=== PATIENT | female | born 1995 | race Caucasian/White ===

== ENCOUNTER 2020-09-22 07:28 | Observation (INO) | payer OTHER, SELFPAY ==
[2020-09-22] VITALS (19 sets, daily range): BP systolic 79–131; BP diastolic 47–87; PULSE 60–117; RESP 12–20; TEMP 36.8–43; O2SAT 93–99; BMI 24.2
--- NOTE | 2020-09-22 07:47 | CT_ITS ---
PROCEDURE: CT ABDOMEN PELVIS W CON CLINICAL INDICATION: RLQ pain COMPARISON: No exams were available for comparison TECHNIQUE: IV Contrast: 75ML Isovue 370 Oral Contrast None Axial images obtained with sagittal and coronal reformats. All CT scans at the facility use one or more dose reduction, viz: automated exposure control, ma/kV adjustment per patient size (including targeted exams where dose is matched to indication, i.e. head), or iterative reconstruction technique. FINDINGS: LOWER THORAX: No acute finding ABDOMEN & PELVIS: The liver, spleen, adrenal glands, and pancreas have an unremarkable appearance. No renal or ureteral calculi. No hydronephrosis. There are a few small retroperitoneal lymph nodes. The appendix is distended slightly measuring approximately 8 mm. The appendix is fluid-filled and there is haziness of the periappendiceal fat. These findings are compatible with acute appendicitis. No abscess or perforation apparent. The appendix is retrocecal. There is mild thickening the hepatic flexure of the colon which could be due to nondistention or mild inflammation. There are few small peritoneal lymph nodes. Small amount fluid is present in the pelvis on the right.. There is a small area of somewhat irregular density present within the fluid in the region of the cul-de-sac posteriorly on the right. This measures 2 x 1.7 cm possibly related to the right ovary or a loop of unopacified bowel. No acute bony findings. IMPRESSION: 1. Findings are compatible with acute appendicitis. No evidence of abscess or perforation. The appendix is retrocecal lying along the inferior aspect of the right pericolic gutter.. 2. Mild thickening of the hepatic flexure which may be due to nondistention versus colitis. 3. Mild amount of fluid in the cul-de-sac and right adnexal region with some soft tissue density in this fluid which could be related to the right ovary or even unopacified bowel loop. Dictated by: Augie Espinoza MD 09/22/2020 08:52 Augie Espinoza MD in [place] 09/22/2020 08:52
[2020-09-22 08:01] LABS: Microscopic, Urine URINE MICROSCOPIC (MICROSCOPIC)
[2020-09-22 08:03] LABS: Appearance,Urine CLEAR (Clear); Bilirubin,Urine Negative (Negative); Blood, Urine Negative (Negative); Color,Urine YELLOW (Yellow); Glucose,Urine (UA) Negative (Negative); Ketones,Urine Negative (Negative); Leukocyte Esterase,Urine TRACE (Negative); Nitrate,Urine Negative (Negative); PH,Urine 5.5 (5.0-8.5); Protein,Urine Negative (Negative); Specific Gravity, Urine 1.025 (1.005-1.030); Urobilinogen,Urine 0.2 EU/dl (0.2)
[2020-09-22 08:05] LABS: Urine Pregnancy, HCG Qual. Negative (Negative)
[2020-09-22 08:10] LABS: Basophils # 0.1 K/mm3 (0-0.2); Basophils % 0.4 % (0.1-2.0); Chloride 102 mmol/L (98-107); Eosinophils # 0.2 K/mm3 (0.0-0.4); Eosinophils % 0.9 % (0.1-12.0); Hematocrit 39.9 % (37.0-47.0); Hemoglobin 13.3 g/dL (12.2-16.2); Lymphocytes # 2.8 K/mm3 (0.7-4.5); Lymphocytes % 16.2 % (10-50); Mean Corpuscular HGB Conc 33.5 g/dL (31.8-35.4); Mean Corpuscular Volume 92.5 fl (81-99); Mean Platelet Volume 7.6 fl (7.4-10.4); Monocytes # 0.6 K/mm3 (0.1-1.0); Monocytes % 3.4 % (1.7-9.3); Neutrophils # 13.8 K/mm3 (1.8-7.8); Neutrophils % 79.1 % (37.0-80.0); Platelet Count 291 K/mm3 (142-424); Red Blood Count 4.31 M/mm3 (4.20-5.40); Red Cell Distribution Width 12.9 % (11.5-17.5); Sodium 139 mmol/L (136-145); White Blood Count 17.4 K/mm3 (4.8-10.8)
[2020-09-22 08:11] LABS: Potassium 3.8 mmoL/L (3.5-5.1)
[2020-09-22 08:13] LABS: Alanine Aminotransferase 18 U/L (12-78); Albumin Level 4.7 g/dl (3.5-5.0); Albumin/Globulin Ratio 1.5 (1.1-1.8); Alkaline Phosphatase 54 U/L (38-126); Anion Gap 12.8 mEq/L (5-15); Aspartate Amino Transferase 27 U/L (14-36); Bilirubin,Total 0.4 mg/dl (0.2-1.3); Blood Urea Nitrogen 9 mg/dl (7-17); Carbon Dioxide 28 mmol/L (22.0-30.0); Creatinine Clearance Estimated 134 mL/min (50-200); Estimated Glomerular Filt Rate 104 ml/min (>60); GFR (African American) 125 ML/MIN (>60); Globulin 3.1 g/dL (1.3-3.2); Total Protein,Serum 7.8 g/dl (6.3-8.2)
--- NOTE | 2020-09-22 08:13 | PC.NURSE ---
rad notified of ct order, spoke with Gopi
[2020-09-22 08:14] LABS: Calcium 8.9 mg/dl (8.4-10.2); Glucose 107 mg/dl (74-100)
[2020-09-22 08:24] LABS: MANUAL DIFFERENTIAL MANUAL DIFFERENTIAL (MANUAL DIFF)
[2020-09-22 08:35] LABS: Lymphocytes % 14 % (10-50); Monocytes % 6 % (2-9); Neutrophils % 80 % (42-76); Platelet Estimate Normal; Total Cells Counted 100
--- NOTE | 2020-09-22 09:04 | HMH.EDABDPAI ---
ED Disposition Clinical Impression: Acute appendicitis Disposition: Admitted as Observation Condition on Discharge: Good Instructions: DI for Acute Abdominal Pain Referrals: Provider,Referral, [Primary Care Provider] - - Critical Care Critical Care Time: No Attestation: On 09/22/20, the high probability of a clinically significant, sudden or life threatening deterioration of the following system(s) required my full and direct attention, intervention and personal management. The time I documented below is in addition to time spent performing reported procedures but includes the following listed in this critical care notation. Medical Decision Making - Medical Records Medical records reviewed: Yes: I reviewed the patient's medical records. - Norbert Inquiry Pt receiving controlled substance: No Vital Signs: 09/22/20 07:37 Temperature 98.6 F Temperature Source Oral Pulse Rate [Right Radial] 117 H Respiratory Rate 16 Blood Pressure [Right Arm] 125/71 Blood Pressure Mean [Right Arm] 89 Blood Pressure Source [Right Arm] Automatic Cuff Blood Pressure Position [Right Arm] Sitting 02 Sat by Pulse Oximetry 99 Oxygen Delivery Method Room Air - Lab Data Lab Results 09/22/20 07:50: Urine Color Yellow, Urine Appearance Clear, Urine pH 5.5, Ur Specific [place] 1.025, Urine Protein Negative, Urine Glucose (UA) Negative, Urine Ketones Negative, Urine Blood Negative, Urine Nitrate Negative, Urine Bilirubin Negative, Urine Urobilinogen 0.2, Ur Leukocyte Esterase Trace, Urine RBC None, Urine WBC 3-5, Ur Squamous Epith Cells 3-5, Urine Bacteria None 09/22/20 07:50: WBC 17.4 H, RBC 4.31, Hgb 13.3, Hct 39.9, MCV 92.5, MCH 31.0, MCHC 33.5, RDW 12.9, Plt Count 291, MPV 7.6, Neut % (Auto) 79.1, Lymph % (Auto) 16.2, [place] % (Auto) 3.4, Eos % (Auto) 0.9, Baso % (Auto) 0.4, Neut # (Auto) 13.8 H, Lymph # (Auto) 2.8, [place] # (Auto) 0.6, Eos # (Auto) 0.2, Baso # (Auto) 0.1, Total Counted 100, Neutrophils % (Manual) 80 H, Lymphocytes % (Manual) 14, Monocytes % (Manual) 6, Platelet Estimate Normal 09/22/20 07:50: Sodium 139, Potassium 3.8, Chloride 102, Carbon Dioxide 28, Anion Gap 12.8, BUN 9, Creatinine 0.70, Estimated Creat Clear 134, Estimated GFR 104, Est GFR ( Amer) 125, Glucose 107 H, Calcium 8.9, Total Bilirubin 0.4, AST 27, ALT 18, Alkaline Phosphatase 54, Total Protein 7.8, Albumin 4.7, Globulin 3.1, Albumin/Globulin Ratio 1.5 09/22/20 07:50: Urine HCG, Qual Negative Result diagrams: 09/22/20 07:50 09/22/20 07:50 Orders (Tests/Meds): ED MEDICATIONS Generic Name Dose Route Start Last Admin Trade Name Freq PRN Reason Stop Dose Admin Sodium Chloride 1,000 mls @ 999 mls/hr 09/22/20 09:15 Sod Chlor 0.9% 1000ml Bag IV 09/22/20 10:15 .Q1H1M SHE[place]TON Piperacillin Sod/Tazobactam 50 mls @ 100 mls/hr 09/22/20 09:15 Sod 3.375 gm/ Sodium Chloride IV 10/06/20 09:14 Q8H SHE[place] Discontinued Medications Generic Name Dose Route Start Last Admin Trade Name Freq PRN Reason Stop Dose Admin Sodium Chloride 1,000 mls @ 999 mls/hr 09/22/20 08:00 09/22/20 07:57 Sod Chlor 0.9% 1000ml Bag IV 09/22/20 09:00 999 mls/hr .Q1H1M SHE[place] Administration Iopamidol 75 ml 09/22/20 08:32 09/22/20 08:33 Iopamidol-370 (76%);100ml Bottle IV 09/22/20 08:33 75 ml ONCE ONE Administration Ketorolac Tromethamine 30 mg 09/22/20 07:56 09/22/20 07:57 Ketorolac 30mg/Ml Vial IV 09/22/20 07:57 30 mg ONCE ONE Administration Ondansetron HCl 4 mg 09/22/20 07:54 09/22/20 07:57 Ondansetron 4mg/2ml Vial IV 09/22/20 07:55 4 mg ONCE ONE Administration Sodium Chloride 10 ml 09/22/20 08:32 09/22/20 08:33 Sodium Chloride 0.9% 10ml Syr (Rad Only) IV 09/22/20 08:33 10 ml ONCE ONE Administration ORDERS Category Date Time Status Type and Screen Stat BBK 09/22/20 09:02 Ordered HCG Qualitative, Serum Stat Lab 09/22/20 07:50 Received Blood Culture Stat Micro 09/22/20 09:02 Ordered Medical
--- NOTE | 2020-09-22 09:05 | PC.NURSE ---
Dr Veras speaking with Dr Castle
--- NOTE | 2020-09-22 09:06 | PC.NURSE ---
per , admit pt.
--- NOTE | 2020-09-22 09:07 | PC.NURSE ---
notified care management of admission, spoke with Carmel
[2020-09-22 09:14] LABS: HCG Qualitative, Serum Negative (Negative)
[2020-09-22 09:38] LABS: Coronavirus 19, PCR Not Detected (NotDetected); Influenza A, PCR Not Detected (NotDetected); Influenza B, PCR Not Detected (NotDetected)
--- NOTE | 2020-09-22 10:14 | PC.NURSE ---
report called to ishmael gay on second floor at this time
--- NOTE | 2020-09-22 10:39 | P.CONPHA_ITS ---
[facility] Pharmacy VTE Monitoring - Patient Demographics Admission date: 09/22/20 Report Date: 09/22/20 Time: 10:39 Allergies/Adverse Reactions: Patient Allergies No Known Allergies Allergy (Verified 09/22/20 07:45) Height: 1.68 m Weight: 68.039 kg Patient Problems: Current Active Problems Acute appendicitis (Acute) - VTE Risk Labs: VTE Related Lab Results Hgb 13.3 g/dL (12.2-16.2) 09/22/20 07:50 Hct 39.9 % (37.0-47.0) 09/22/20 07:50 Plt Count 291 K/mm3 (142-424) 09/22/20 07:50 BUN 9 mg/dl (7-17) 09/22/20 07:50 Creatinine 0.70 mg/dl (0.52-1.04) 09/22/20 07:50 Estimated Creat Clear 134 mL/min (50-200) 09/22/20 07:50 Clinical Trial Participant: No - Prophylaxis VTE Prophylaxis Ordered?: Yes Types of VTE Prophylaxis: TEDS Knee High
--- NOTE | 2020-09-22 11:14 | HMH.GSHP ---
HPI HPI: This is a 24-year-old female who presented to the emergency department this morning with increasing right lower quadrant abdominal pain. Evaluation revealed radiographic evidence of appendicitis. Leukocytosis also confirmed. Please see HPI from emergency department evaluation forwarded below. Forwarded from emergency department evaluation: Abdominal Pain HPI - General Chief Complaint: Abdominal Pain Stated Complaint: lower right abd pain Time Seen by Provider: 09/22/20 08:30 Mode of Arrival: Ambulatory Limitations: No Limitations Description of Symptoms (Recalled from ER Triage Doc. by RN): Pt reports R lower quadrant abd pain that began approx 0600 this AM. Pt reports pain woke her up this morning. Pt reports nausea. Pt reports last BM was this morning. Pt describes pain as sharp, stabbing. - History of Present Illness HPI narrative: 24-year-old female presents with sudden onset right lower quadrant pain this morning. She said initially felt like her ovarian cyst that she gets however the pain was worse than normal. No fever no chills no nausea vomiting diarrhea. No chest pain or shortness of air. No prior abdominal surgeries. No sick contacts. Onset (ago): hour(s) (3) Consistency: constant Location: RLQ Severity: moderate Quality: dull H History Medical History: Denies:: Asthma, Cancer *Have you ever received a pneumonia vaccine?: No *Have you received a flu vaccine this season?: Yes Other Medical History: Denies: Anemia, Hypothyroidism Other Surgeries: Yes: No Previous Surgery - *Social History Last grade of school completed: Some college Smoking Status: Never smoker Alcohol Intake: current Alcohol Intake Frequency:: holidays/special occasions only Substance Use Type: denies use *Occupational Status:: employed *Travel in the last 8 weeks: None Family Hx:: No significant family history Review of Systems - Review of Systems Review of systems:: pertinent systems reviewed and negative unless documented below - *Gastrointestinal Reports abdominal pain - *Neurologic Denies unsteadiness, Denies dizziness, Denies headache(s) Meds Home Medications Medication Instructions Recorded Confirmed Type No Known Home Medications 09/22/20 09/22/20 History Allergies Allergy/AdvReac Type Severity Reaction Status Date / Time No Known Allergies Allergy Verified 09/22/20 07:45 Exam Vital signs and Labs for Last 24 Hours: Temp Pulse Resp BP Pulse Ox 99.5 F 99 H 16 124/73 99 09/22/20 10:25 09/22/20 10:25 09/22/20 10:25 09/22/20 10:25 09/22/20 10:06 Laboratory Results - last 24 hr 09/22/20 07:50: Urine Color Yellow, Urine Appearance Clear, Urine pH 5.5, Ur Specific [place] 1.025, Urine Protein Negative, Urine Glucose (UA) Negative, Urine Ketones Negative, Urine Blood Negative, Urine Nitrate Negative, Urine Bilirubin Negative, Urine Urobilinogen 0.2, Ur Leukocyte Esterase Trace, Urine RBC None, Urine WBC 3-5, Ur Squamous Epith Cells 3-5, Urine Bacteria None 09/22/20 07:50: WBC 17.4 H, RBC 4.31, Hgb 13.3, Hct 39.9, MCV 92.5, MCH 31.0, MCHC 33.5, RDW 12.9, Plt Count 291, MPV 7.6, Neut % (Auto) 79.1, Lymph % (Auto) 16.2, [place] % (Auto) 3.4, Eos % (Auto) 0.9, Baso % (Auto) 0.4, Neut # (Auto) 13.8 H, Lymph # (Auto) 2.8, [place] # (Auto) 0.6, Eos # (Auto) 0.2, Baso # (Auto) 0.1, Total Counted 100, Neutrophils % (Manual) 80 H, Lymphocytes % (Manual) 14, Monocytes % (Manual) 6, Platelet Estimate Normal 09/22/20 07:50: Sodium 139, Potassium 3.8, Chloride 102, Carbon Dioxide 28, Anion Gap 12.8, BUN 9, Creatinine 0.70, Estimated Creat Clear 134, Estimated GFR 104, Est GFR ( Amer) 125, Glucose 107 H, Calcium 8.9, Total Bilirubin 0.4, AST 27, ALT 18, Alkaline Phosphatase 54, Total Protein 7.8, Albumin
--- NOTE | 2020-09-22 15:39 | P.PN_ITS ---
[facility] Anesthesia Checklist - Structural Data Admitted From: Inpatient Planned Operative Procedure/s: lap appy Consent for Planned Operative Procedure(s) Verified: Yes - Airway Assessment C-Spine Mobility Assessed: Yes TMJ Mobility Assessed: Yes Dentition: Good Dentition - Neurological Assessment Level of Consciousness: Awake, Alert, Appropriate - Anesthesia Plan Anesthesia Risk discussed: Yes Anesthesia Plan: Verified ASA Class: I Anesthesia Type: General [facility] History I have reviewed the patient's past medical history: Yes Medical History: Denies:: Asthma, Cancer, Diabetes Mellitus Type 1, Diabetes Mellitus Type 2 *Have you ever received a pneumonia vaccine?: No *Have you received a flu vaccine this season?: Yes Other Medical History: Denies: Anemia, Hypothyroidism Anesthesia experience/problems:: none Other Surgeries: Yes: No Previous Surgery - *Social History Last grade of school completed: Some college Smoking Status: Never smoker Alcohol Intake: never Alcohol Intake Frequency:: holidays/special occasions only Substance Use Type: denies use *Occupational Status:: employed *Travel in the last 8 weeks: Inside the [facility] Family Hx:: No significant family history
--- NOTE | 2020-09-22 16:23 | HMH.OPNOTE ---
Date of procedure: 09/22/20 Pre-op Diagnosis:: Appendicitis Post-op Diagnosis:: Suppurative appendicitis Procedure performed:: Laparoscopic appendectomy Surgeon:: Gerhard Castle MD Principle Software Engineer(s):: Elvie PRINTING WORKER SUPERVISOR:: Nir Pizano Anesthesia: GETA Estimated blood loss (mL): 10 Operative findings:: Suppurative appendix Severe periappendiceal inflammation Partially retrocecal appendix Operative note:: After informed consent was obtained the patient was taken to the operating room and placed in the supine position. General anesthesia was induced and her abdomen was prepped and draped in a sterile fashion. After infiltration of local anesthetic a supraumbilical incision was made. A Veress needle was placed in position. The abdomen was insufflated. A 12 mm optical trocar was placed in position. Under direct visualization an additional 5 mm trocar was placed in the suprapubic position and an additional 5 mm trocar was placed in the left lower quadrant. Evaluation of the right lower quadrant revealed periappendiceal inflammation. The appendix was enlarged and inflamed. Suppurative changes were noted along the mid/distal appendix. The tip of the appendix was elevated as the mesoappendix was taken with harmonic phil. The proximal and midportion of the appendix were retrocecal and dissection was very difficult. No obvious injury to small bowel or colon was noted. An Endopath 45 stapling device was utilized to transect the appendix at its base. The appendix was placed in a retrieval bag and removed through the supraumbilical trocar site. The right lower quadrant and pelvis were thoroughly irrigated. No active bleeding or sign of injury was noted. No pockets of purulence were encountered. The fascia at the supraumbilical trocar site was reapproximated with 0 Ethibond. Pneumoperitoneum was released as the remaining trocars were removed. All wounds were irrigated and skin was closed with 4-0 Monocryl in a subcuticular fashion. Steri-Strips were applied and the patient was transferred to recovery in stable condition after extubation. Condition: stable Disposition: PACU Specimens:: Appendix Complications:: No immediate
--- NOTE | 2020-09-22 16:29 | P.PN_ITS ---
[facility] Anesthesia Record Part I Intake, IV Amount: 1,500 Estimated blood loss (mL): 0 Urine output (mL): 150 Blood Pressure: 102/87 SaO2: 98 Pulse Rate: 95 Respiratory Rate: 12 Temperature: 99.4 F Patient is:: Awake, Stable Stable to PACU at:: 16:30
[2020-09-23 00:09] VITALS: BP 109/48; PULSE 80; RESP 17; TEMP 36.8; O2SAT 98
--- NOTE | 2020-09-23 02:35 | PC.NURSE ---
2049: SPOKE TO DR. QUAN AND INFORMED HIM THAT PATIENT WAS REQUESTING NAUSEA MEDICINE. SEE ORDER PER APR.
--- NOTE | 2020-09-23 03:11 | PC.NURSE ---
A&OX4. TOLERATING RA WELL. PT HAS C/O NAUSEA X1 THIS SHIFT. TX PER APR. PT HAS NOT REQUESTED PAIN MEDICATION FOR ABD PAIN. STATES SHE IS SORE BUT IT IS TOLERABLE. ABD INCISIONS CDI. PT TOLERATING CLEAR LIQUIDS. RESTING WELL T/O SHIFT. VSS WILL CONTINUE TO MONITOR.
[2020-09-23 03:30] VITALS: BP 107/53; PULSE 77; RESP 17; TEMP 37.2; O2SAT 97
--- NOTE | 2020-09-23 06:40 | P.PN_ITS ---
Subjective Patient reports: feels better Narrative: Some nausea overnight. No significant nausea currently. Progress Note: A&P (1) Suppurative appendicitis Status: Acute Assessment and plan: Overall, doing well status post laparoscopic appendectomy. Mild to moderate suppurative changes noted along mid/distal appendix. Follow-up a.m. labs Slowly advance diet Continue antibiotics secondary to suppurative changes Exam Vital signs and Labs for Last 24 Hours: Temp Pulse Resp BP Pulse Ox 98.9 F 77 17 107/53 L 97 09/23/20 03:30 09/23/20 03:30 09/23/20 03:30 09/23/20 03:30 09/23/20 03:30 Laboratory Results - last 24 hr 09/22/20 07:50: Urine Color Yellow, Urine Appearance Clear, Urine pH 5.5, Ur Specific [place] 1.025, Urine Protein Negative, Urine Glucose (UA) Negative, Urine Ketones Negative, Urine Blood Negative, Urine Nitrate Negative, Urine Bilirubin Negative, Urine Urobilinogen 0.2, Ur Leukocyte Esterase Trace, Urine RBC None, Urine WBC 3-5, Ur Squamous Epith Cells 3-5, Urine Bacteria None 09/22/20 07:50: WBC 17.4 H, RBC 4.31, Hgb 13.3, Hct 39.9, MCV 92.5, MCH 31.0, MCHC 33.5, RDW 12.9, Plt Count 291, MPV 7.6, Neut % (Auto) 79.1, Lymph % (Auto) 16.2, [place] % (Auto) 3.4, Eos % (Auto) 0.9, Baso % (Auto) 0.4, Neut # (Auto) 13.8 H, Lymph # (Auto) 2.8, [place] # (Auto) 0.6, Eos # (Auto) 0.2, Baso # (Auto) 0.1, Total Counted 100, Neutrophils % (Manual) 80 H, Lymphocytes % (Manual) 14, Monocytes % (Manual) 6, Platelet Estimate Normal 09/22/20 07:50: Sodium 139, Potassium 3.8, Chloride 102, Carbon Dioxide 28, Anion Gap 12.8, BUN 9, Creatinine 0.70, Estimated Creat Clear 134, Estimated GFR 104, Est GFR ( Amer) 125, Glucose 107 H, Calcium 8.9, Total Bilirubin 0.4, AST 27, ALT 18, Alkaline Phosphatase 54, Total Protein 7.8, Albumin 4.7, Globulin 3.1, Albumin/Globulin Ratio 1.5 09/22/20 07:50: Urine HCG, Qual Negative 09/22/20 07:50: Serum HCG, Qual Negative 09/22/20 09:12: SARS-CoV-2 (PCR) Not detected, Influenza A Untype (PCR) Not detected, Influenza Type B (PCR) Not detected 09/22/20 09:24: Blood Type A Negative, Antibody Screen Negative I & O for Last 24 hours: Intake & Output 09/20/20 09/21/20 09/22/20 09/23/20 11:59 11:59 11:59 11:59 Intake Total 3089 / 3089 Balance 3089 / 3089 Weight 150 lb - Constitutional no acute distress - *Routine Respiratory Exam Absent: respiratory distress - *Routine Cardiovascular Exam Present: RRR - *Routine Abdominal Exam Present: soft Comments: Dressings in place. No spreading cellulitis.
[2020-09-23 06:41] LABS: Basophils % 0.5 % (0.1-2.0); Eosinophils # 0.1 K/mm3 (0.0-0.4); Hematocrit 30.4 % (37.0-47.0); Lymphocytes # 1.9 K/mm3 (0.7-4.5); Lymphocytes % 31.4 % (10-50); Mean Corpuscular HGB Conc 34.2 g/dL (31.8-35.4); Mean Corpuscular Hemoglobin 31.3 pg (27.0-31.2); Mean Corpuscular Volume 91.5 fl (81-99); Mean Platelet Volume 8.7 fl (7.4-10.4); Monocytes # 0.3 K/mm3 (0.1-1.0); Monocytes % 5.3 % (1.7-9.3); Neutrophils # 3.8 K/mm3 (1.8-7.8); Neutrophils % 61.8 % (37.0-80.0); Platelet Count 194 K/mm3 (142-424); Red Blood Count 3.32 M/mm3 (4.20-5.40); White Blood Count 6.2 K/mm3 (4.8-10.8)
[2020-09-23 06:54] LABS: Hemoglobin 10.4 g/dL (12.2-16.2)
[2020-09-23 07:00] LABS: Chloride 106 mmol/L (98-107); Sodium 136 mmol/L (136-145)
[2020-09-23 07:03] LABS: Blood Urea Nitrogen 8 mg/dl (7-17); Calcium 8.1 mg/dl (8.4-10.2); Carbon Dioxide 28 mmol/L (22.0-30.0); Creatinine Clearance Estimated 116 mL/min (50-200); Estimated Glomerular Filt Rate 88 ml/min (>60); GFR (African American) 107 ML/MIN (>60); Glucose 85 mg/dl (74-100)
--- NOTE | 2020-09-23 07:38 | P.PN_ITS ---
[facility] Anesthesia Record Part II Discharge Time: 17:10 Destination: Medical Surgical Department PACU nurse assessment reviewed?: Yes Patient Condition:: Good Anesthesia Complications:: None Swallowing reflex intact?: Yes Cyanosis?: No Blood Pressure: 129/62 Pulse Rate: 87 Temperature: 97.4 F Mental Status: Alert & Oriented Pain level:: 2 Nausea and/or vomitting:: None Intake, IV Amount: 0
[2020-09-23 07:39] VITALS: BP 129/62; PULSE 87; TEMP 36.3
[2020-09-23 08:00] VITALS: BP 113/58; PULSE 83; RESP 18; TEMP 36.7; O2SAT 98
[2020-09-23 09:21] LABS: Microscopic,Cath URINE MICROSCOPIC (MICROSCOPIC)
[2020-09-23 09:29] LABS: Appearance,Urine/Cath CLEAR (Clear); Bilirubin,Cath Negative (Negative); Blood, Urine/Cath Negative (Negative); Color,Urine/Cath YELLOW (Yellow); Glucose,Urine/Cath (UA) Negative (Negative); Ketones,Urine/Cath Negative (Negative); Leukocyte Esterase,Cath Negative (Negative); Nitrate,Cath Negative (Negative); PH,Urine/Cath 8.5 (5.0-8.5); Protein,Urine/Cath Negative (Negative); Urobilinogen,Cath 0.2 EU/dl (0.2)
[2020-09-23 09:43] LABS: Squamous Epithelial Ur./Cath Occasional #/hpf (0-5)
--- NOTE | 2020-09-23 11:54 | HMH.DCSUM ---
General - General Admission date:: 09/22/20 Discharge date: 09/23/20 HPI HPI: This is a 24-year-old female who presented to the emergency department this morning with increasing right lower quadrant abdominal pain. Evaluation revealed radiographic evidence of appendicitis. Leukocytosis also confirmed. Please see HPI from emergency department evaluation forwarded below. Forwarded from emergency department evaluation: Abdominal Pain HPI - General Chief Complaint: Abdominal Pain Stated Complaint: lower right abd pain Time Seen by Provider: 09/22/20 08:30 Mode of Arrival: Ambulatory Limitations: No Limitations Description of Symptoms (Recalled from ER Triage Doc. by RN): Pt reports R lower quadrant abd pain that began approx 0600 this AM. Pt reports pain woke her up this morning. Pt reports nausea. Pt reports last BM was this morning. Pt describes pain as sharp, stabbing. - History of Present Illness HPI narrative: 24-year-old female presents with sudden onset right lower quadrant pain this morning. She said initially felt like her ovarian cyst that she gets however the pain was worse than normal. No fever no chills no nausea vomiting diarrhea. No chest pain or shortness of air. No prior abdominal surgeries. No sick contacts. Onset (ago): hour(s) (3) Consistency: constant Location: RLQ Severity: moderate Quality: dull Hospital Course Hospital Course: The patient underwent laparoscopic appendectomy. Please see operative report for detail. She was found to have suppurative appendicitis. She was maintained on Zosyn throughout her hospitalization. She remained afebrile with stable and normal vital signs and was deemed appropriate for discharge home on postoperative day one. She was discharged with a short course of Augmentin secondary to the suppurative nature of her appendicitis. Objective Vital signs: Temp Pulse Resp BP Pulse Ox 98.0 F 83 18 113/58 L 98 09/23/20 08:00 09/23/20 08:00 09/23/20 08:00 09/23/20 08:00 09/23/20 08:00 no acute distress - *Routine HEENT Exam Head: Present: normocephalic Eye: Present: EOMI ENT: Present: mucous membranes moist - *Routine Neck Exam Present: full ROM - Routine Chest/Breast/Axilla Exam Chest wall: Absent: tenderness - *Routine Respiratory Exam Absent: respiratory distress - *Routine Cardiovascular Exam Present: RRR - *Routine Abdominal Exam Present: soft - *Routine Rectal Exam Patient deferred: visual exam - *Routine Exam Patient deferred: external exam - *Routine Extremities Exam Present: full ROM - Routine Back/Spine/Pelvis Exam Back/Spine: Present: full ROM - *Routine Skin Exam Absent: erythema - *Routine Neurological Exam Present: alert - Routine Psychiatric Exam Present: normal affect Results Labs on day of discharge: Labs from last 24 hours 09/23/20 09/23/20 09/22/20 06:29 06:29 15:20 WBC 6.2 D RBC 3.32 L Hgb 10.4 L D Hct 30.4 L MCV 91.5 MCH 31.3 H MCHC 34.2 RDW 13.0 Plt Count 194 D MPV 8.7 Neut % (Auto) 61.8 Lymph % (Auto) 31.4 [place] % (Auto) 5.3 Eos % (Auto) 1.0 Baso % (Auto) 0.5 Neut # (Auto) 3.8 Lymph # (Auto) 1.9 [place] # (Auto) 0.3 Eos # (Auto) 0.1 Baso # (Auto) 0.0 Sodium 136 Potassium 4.0 Chloride 106 Carbon Dioxide 28 Anion Gap 6.0 BUN 8 Creatinine 0.80 Estimated Creat Clear 116 Estimated GFR 88 Est GFR ( Amer) 107 Glucose 85 D Calcium 8.1 L Urine Color Yellow Urine Appearance Clear Urine pH 8.5 Ur Specific [place] 1.010 Urine Protein Negative Urine Glucose (UA) Negative Urine Ketones Negative Urine Blood Negative Urine Nitrate Negati
[2020-09-23 12:00] VITALS: BP 105/56; PULSE 69; RESP 16; TEMP 37; O2SAT 100
--- NOTE | 2020-09-23 13:01 | HMH.PHAINT ---
MEDICATION DISCHARGE COUNSELING COMPLETED. PATIENT HAD NO QUESTIONS. SPOKE WITH PATIENT ABOUT HOW TO TAKE EACH MEDICATION AND SIGNS TO WATCH FOR IN CASE OF AN ADVERSE EVENT.
== END 2020-09-23 13:53 | disposition home or self-care (01) ==
LOC: ER 09:08 → 2ND 09:16
PROVIDERS: Emergency Medicine; Admitting Provider Surgery; Emergency Provider Emergency Medicine; Visit Provider Surgery
PROC: 0DTJ4ZZ Resection of Appendix, Percutaneous Endoscopic Approach (ICD-10-PCS; CPT 44970; principal; 2020-09-22 15:00)
DX: K35.80 Unspecified acute appendicitis (principal); Z20.822 Contact with and (suspected) exposure to COVID-19
CPT/HCPCS: 44970; 36415; 74177; 80048; 80053; 81001; 81025; 84703; 85007; 85025; 86850; 87040; 96365; 96367; 96375; 99284; G0378; J2405; J2543; Q9967; U0003

== ENCOUNTER 2024-04-16 15:51 | Outpatient (CLI) | payer BC, SELFPAY ==
[2024-04-16 18:47] LABS: HCG,Quantitative 35277 mIU/ml (0-5.42)
== END 2024-04-16 23:59 | disposition home or self-care (01) ==
LOC: LAB 15:56
PROVIDERS: PCP Physician Assistant; Visit Provider Obstetrics & Gynecology
DX: Z32.01 Encounter for pregnancy test, result positive (principal)
CPT/HCPCS: 36415; 84144; 84702

== ENCOUNTER 2024-05-13 13:57 | Outpatient (CLI) | payer BC, SELFPAY ==
[2024-05-13 14:47] LABS: Basophils % 0.5 % (0.1-2.0); Eosinophils # 0.1 K/mm3 (0.0-0.4); Eosinophils % 1.2 % (0.1-12.0); Hematocrit 35.2 % (37.0-47.0); Lymphocytes # 2.4 K/mm3 (0.7-4.5); Lymphocytes % 29.4 % (10-50); Mean Corpuscular HGB Conc 34.1 g/dL (31.8-35.4); Mean Corpuscular Hemoglobin 31.4 pg (27.0-31.2); Mean Corpuscular Volume 92.1 fl (81-99); Mean Platelet Volume 9.9 fl (7.4-10.4); Monocytes # 0.5 K/mm3 (0.1-1.0); Monocytes % 6.4 % (1.7-9.3); Neutrophils # 5.1 K/mm3 (1.8-7.8); Neutrophils % 62.4 % (37.0-80.0); Platelet Count 292 K/mm3 (142-424); Red Blood Count 3.82 M/mm3 (4.20-5.40); Red Cell Distribution Width 11.9 % (11.5-17.5); White Blood Count 8.2 K/mm3 (4.8-10.8)
[2024-05-13 16:12] LABS: HIV Combo NEGATIVE (Negative)
[2024-05-13 16:19] LABS: Hepatitis C Ab Qual. W/ RFX NEGATIVE (Negative)
[2024-05-14 07:39] LABS: RPR W/RFX Titers Nonreactive (Nonreactive)
[2024-05-14 08:16] LABS: Hepatitis B Surface Antigen Negative (Negative)
== END 2024-05-13 23:59 | disposition home or self-care (01) ==
LOC: LAB 13:58
PROVIDERS: PCP Physician Assistant; Visit Provider Obstetrics & Gynecology
DX: Z34.01 Encounter for supervision of normal first pregnancy, first trimester (principal)
CPT/HCPCS: 36415; 85025; 86592; 86762; 86803; 86850; 87340; 87389

== ENCOUNTER 2024-07-23 13:56 | Outpatient (CLI) | payer BC, SELFPAY ==
--- NOTE | 2024-07-23 14:00 | US_ITS ---
PROCEDURE: US OB /MATERNAL DETAIL CLINICAL INDICATION: 20 week Anatomy Scan-US OB Complete COMPARISON: No exams were available for comparison FINDINGS: Transabdominal sonographic images of the pelvis were obtained. From her established due date she is 20 weeks 4 days. Single viable intrauterine gestation. Cephalic position. Placenta: Posteriorplacenta grade 1. Placental lakes are seen. There is an average amount of fluid. The cervix appears satisfactory. Closed and measuring 3.65 cm in length. Complete survey performed and was unremarkable on the submitted images as in PACS. No discrete anomalies identified on survey imaging by technologist. Active fetus. Three-vessel cord with satisfactory umbilical cord insertion. 4- chamber heart noted. Situs, aortic arch, LVOT, RVOT, three-vessel view appear normal. Survey of brain & ventricles Unremarkable. Cerebellum, thalamus, choroid plexus, cisterna magna appear normal. Face and neck survey unremarkable. Profile, nasion, lips and nose appeared normal. Diaphragm and chest views unremarkable. Abdomen: Both kidneys noted and unremarkable. Stomach and bladder noted and satisfactory. Spine: Survey of the spine satisfactory with no anomalies identified nor imaged. Cervical, thoracic, lower spine appear normal. Both arms and legs noted. Amniotic Fluid: Adequate. MVP 2.73 cm Measurements: Average ultrasound age 19weeks 6days. Estimated due date by ultrasound age 1112/11/2024. Estimated weight 309g BPD = 19weeks 5days HC = 19weeks 5days AC = 19weeks 5days FL = 19weeks 6days Growth Percentile= 10 Heart Rate = 153bpm Cerebellum = 18weeks 6days Humerus = 19weeks 6days HC/AC is 1.19 FL/BPD is 0.7 FL/AC is 0.22 IMPRESSION: 1. Viable fetus in the cephalic presentation with a posterior placenta grade 1. There are placental lakes seen. 2. Fluid is within normal limits with an MVP 2.73 cm. 3. Anatomical scan appears normal. 4. biometry is consistent with the dates. Dictated by: Delmer Forrest MD 07/23/2024 15:17 Delmer Forrest MD in [facility] 07/23/2024 15:17
== END 2024-07-23 23:59 | disposition home or self-care (01) ==
LOC: RAD 13:56
PROVIDERS: PCP Physician Assistant; Visit Provider Obstetrics & Gynecology
DX: O26.892 Other specified pregnancy related conditions, second trimester (principal); Z67.91 Unspecified blood type, Rh negative; Z36.3 Encounter for antenatal screening for malformations; Z3A.20 20 weeks gestation of pregnancy
CPT/HCPCS: 76811

== ENCOUNTER 2024-09-17 13:18 | Outpatient (CLI) | payer BC, SELFPAY ==
[2024-09-17 13:49] LABS: Hematocrit 33.6 % (37.0-47.0); Hemoglobin 11.2 g/dL (12.2-16.2); Immature Granulocytes % 0.6 %; Mean Corpuscular HGB Conc 33.3 g/dL (31.8-35.4); Mean Corpuscular Hemoglobin 31.5 pg (27.0-31.2); Mean Corpuscular Volume 94.4 fl (81-99); Nucleated Red Blood Cells % 0 %; Platelet Count 282 K/mm3 (142-424); Red Blood Count 3.56 M/mm3 (4.20-5.40); Red Cell Distribution Width-SD 41.1 fL; White Blood Count 8.8 K/mm3 (4.8-10.8)
[2024-09-17 15:10] VITALS: BP 136/84; PULSE 94; RESP 18; O2SAT 100
[2024-09-17] MEDS: RHO(D) IMMUNE GLOBULIN 1,500 UNIT (300MCG) SYRINGE 300 MCG IM (15:12)
--- NOTE | 2024-09-17 15:15 | US_ITS ---
PROCEDURE: US OB FOLLOW UP CLINICAL INDICATION: growth and LADONNA COMPARISON: US US OB /MATERNAL DETAIL from 07/23/2024 FINDINGS: Transabdominal sonographic images of the pelvis were obtained. The following parameters are obtained: From her established due date she is 28weeks 4days Viable fetus in the cephalic presentation with a posterior placenta grade 1. There are placental lakes seen. The cervix measures 2.86 cm heart rate: 146bpm bpm. Estimated weight 1182 grams, 2 lb 10 oz Average ultrasound age 28 weeks 3 days BPD: 29weeks 0 days, 52 percentile HC: 28weeks 0 days, 8 percentile AC: 27weeks 5days, 19 percentile FL: 28weeks 5days, 38 percentile HC/AC: 1.1 FL/BPD: 0.75 FL/AC: 0.23 Growth percentile: 23 Amniotic fluid index: 9.36cm, MVP 3.40 cm No obvious anomalies evident. profile seen, stomach, bladder, kidneys, three-vessel cord, four chamber heart appear normal. IMPRESSION: 1. Viable fetus in the cephalic presentation with a posterior placenta grade 1. There are several small placental lakes. 2. The fluid is within normal limits with amniotic fluid index 9.36 cm, MVP 3.40 cm. 3. There has been good interval growth with the fetus currently 23rd percentile. 4. Limited anatomical scan appears normal. Dictated by: Delmer Forrest MD 09/17/2024 21:16 Delmer Forrest MD in [place] 09/17/2024 21:16
[2024-09-17 17:03] LABS: RPR W/RFX Titers Nonreactive (Nonreactive)
== END 2024-09-17 15:15 | disposition home or self-care (01) ==
PROVIDERS: PCP Physician Assistant; Visit Provider Obstetrics & Gynecology
DX: O36.5990 Maternal care for other known or suspected poor fetal growth, unspecified trimester, not applicable or unspecified (principal); Z67.91 Unspecified blood type, Rh negative; Z3A.00 Weeks of gestation of pregnancy not specified
CPT/HCPCS: 36415; 76816; 85025; 86592; 96372; J2790

== ENCOUNTER 2024-09-18 15:52 | Outpatient (CLI) | payer BC, SELFPAY ==
[2024-09-18 18:13] LABS: Glucose 1 Hour 143 mg/dL (74-100)
== END 2024-09-18 23:59 | disposition home or self-care (01) ==
LOC: LAB 15:53
PROVIDERS: PCP Physician Assistant; Visit Provider Obstetrics & Gynecology
DX: O36.5990 Maternal care for other known or suspected poor fetal growth, unspecified trimester, not applicable or unspecified (principal); O26.899 Other specified pregnancy related conditions, unspecified trimester; Z67.91 Unspecified blood type, Rh negative
CPT/HCPCS: 36415; 82947

== ENCOUNTER 2024-09-23 15:18 | Outpatient (CLI) | payer BC, SELFPAY ==
[2024-09-23 17:22] LABS: Glucose,Fasting 70 mg/dl (74-100)
[2024-09-23 18:02] LABS: Glucose 1 Hour 190 mg/dL (74-100); Glucose 2 Hour 182 mg/dL (74-100)
[2024-09-23 19:28] LABS: Glucose 3 Hour 159 mg/dL (74-100)
== END 2024-09-23 23:59 | disposition home or self-care (01) ==
LOC: LAB 15:18
PROVIDERS: PCP Physician Assistant; Visit Provider Obstetrics & Gynecology
DX: O36.5990 Maternal care for other known or suspected poor fetal growth, unspecified trimester, not applicable or unspecified (principal); Z3A.00 Weeks of gestation of pregnancy not specified
CPT/HCPCS: 36415; 82951

== ENCOUNTER 2024-10-14 14:57 | Outpatient (CLI) | payer BC, SELFPAY ==
--- NOTE | 2024-10-14 15:00 | US_ITS ---
PROCEDURE: US OB BIOPHYSICAL PROFILE CLINICAL INDICATION: Needs for GDM COMPARISON: US US OB /MATERNAL DETAIL from 07/23/2024 US US OB FOLLOW UP from 09/17/2024 FINDINGS: Transabdominal sonographic images of the uterus were obtained. From her established due date she is 32weeks 3days. The following parameters are obtained: Viable Fetus in the cephalic presentation with a posterior placenta grade 2. Placental lakes are seen. Average ultrasound age is 33weeks 2days Estimated weight 2,136g, 4 lb 11 oz The cervix measures 2.88 cm in length Measurements: heart Rate = 120bpm BPD = 33weeks 4days, 75 percentile HC = 33weeks 3days, 36 percentile AC = 33weeks 2days, 74 percentile FL = 32weeks 6days, 49 percentile HC/AC is 1.03 FL/BPD is 0.76 FL/AC is 0.22 64 percentile Amniotic fluid index: 15.53cm MVP 4.40 cm Qualitative AFV:2 Breathing movements: 2 Gross Body Movements: 2 Tone: 2 Biophysical profile score: 8 No obvious anomalies evident.Kidneys, profile, bladder, stomach, four-chamber heart, three-vessel cord appear normal. IMPRESSION: 1. Viable fetus in the cephalic presentation with a posterior placenta grade 2. There are several placental lakes seen. 2. The fluid is within normal limits with amniotic fluid index 15.53 cm MVP 4.40 cm. 3. Biophysical profile is 8/8 with good breathing movement and movement seen. 4. There has been good interval growth with the fetus currently 64th percentile. 5. Limited anatomical scan appears normal. Dictated by: Delmer Forrest MD 10/14/2024 17:06 Delmer Forrest MD in [facility] 10/14/2024 17:06
== END 2024-10-14 23:59 | disposition home or self-care (01) ==
LOC: RAD 14:57
PROVIDERS: PCP Physician Assistant; Visit Provider Obstetrics & Gynecology
DX: O28.3 Abnormal ultrasonic finding on antenatal screening of mother (principal); O24.419 Gestational diabetes mellitus in pregnancy, unspecified control; O36.5930 Maternal care for other known or suspected poor fetal growth, third trimester, not applicable or unspecified; Z3A.32 32 weeks gestation of pregnancy
CPT/HCPCS: 76816; 76819

== ENCOUNTER 2024-11-05 08:05 | Outpatient (CLI) | payer BC, SELFPAY | END 2024-11-05 23:59 | disposition home or self-care (01) | LOC: LAB.DROPOF 11-07 08:06 | PROVIDERS: PCP Physician Assistant; Visit Provider Obstetrics & Gynecology | DX: O24.419 Gestational diabetes mellitus in pregnancy, unspecified control (principal); O36.5990 Maternal care for other known or suspected poor fetal growth, unspecified trimester, not applicable or unspecified; O26.899 Other specified pregnancy related conditions, unspecified trimester; Z67.91 Unspecified blood type, Rh negative; Z3A.00 Weeks of gestation of pregnancy not specified | CPT/HCPCS: 86403 ==

== ENCOUNTER 2024-11-05 16:12 | Outpatient (CLI) | payer BC, SELFPAY ==
[2024-11-05 16:27] VITALS: BMI 28.7
--- NOTE | 2024-11-05 16:27 | US_ITS ---
PROCEDURE INFORMATION: Exam: US Biophysical Profile Without Non-Stress Test Exam date and time: 11/05/2024 4:34 PM Age: 29 years old Clinical indication: Screening exam; Routine US screening of fetus; Third trimester (>=28 weeks 0 days); ; Additional info: Nonreactive nst TECHNIQUE: Imaging protocol: US biophysical profile without non-stress testing. COMPARISON: US OB BIOPHYSICAL PROFILE 10/14/2024 2:49 PM FINDINGS: Gestation: There is a single live intrauterine gestation in cephalic presentation. breathing and movement are noted. heart rate: 135 bpm Placenta: The placenta is fundal and grade 2. Amniotic fluid index: LADONNA is 11.41 cm. LADONNA measures 11.41 cm. BIOPHYSICAL PROFILE: breathing (BPP): 2 /2 gross body movement (BPP): 2 /2 tone (BPP): 2 /2 Amniotic fluid (BPP): 2 /2 Biophysical profile score (BPP): 8 /8 urinary bladder: The bladder, renal regions and three-vessel cord appear appears within range of normal. IMPRESSION: 1. Single live intrauterine gestation in cephalic presentation. 2. BPP measures 8/8. 3. LADONNA measures 11.41 cm. 4. Fundal grade 2 placenta.
[2024-11-05 16:38] VITALS: BP 115/71; PULSE 66; RESP 17; TEMP 36.7; O2SAT 100; BMI 28.7
[2024-11-05 16:58] LABS: Microscopic, Urine URINE MICROSCOPIC (MICROSCOPIC)
[2024-11-05 17:08] LABS: Bilirubin,Urine Negative (Negative); Color,Urine YELLOW (Yellow); Glucose,Urine (UA) Negative (Negative); Ketones,Urine TRACE (Negative); Leukocyte Esterase,Urine Negative (Negative); PH,Urine 6.0 (5.0-8.5); Protein,Urine Negative (Negative); Specific Gravity, Urine <= 1.005 (1.005-1.030); Urobilinogen,Urine 0.2 EU/dl (0.2)
[2024-11-05 17:26] LABS: Bacteria,Urine 4+ /lpf; Squamous Epithelial Cell,Urine 20-50 #/hpf (0-5); WBC,Urine 50-100 #/hpf (0-3)
== END 2024-11-05 17:20 | disposition home or self-care (01) ==
LOC: OBOUT 16:14 → OB 16:14
PROVIDERS: PCP Physician Assistant; Visit Provider Obstetrics & Gynecology
DX: O28.8 Other abnormal findings on antenatal screening of mother (principal); Z3A.35 35 weeks gestation of pregnancy
CPT/HCPCS: 59025; 76819; 81001; 86403; 87086; 99212; G0463

== ENCOUNTER 2024-11-17 17:18 | Outpatient (CLI) | payer BC, SELFPAY ==
[2024-11-17 17:22] VITALS: BMI 29.5
[2024-11-17 17:47] LABS: Microscopic, Urine URINE MICROSCOPIC (MICROSCOPIC)
[2024-11-17 17:48] LABS: Bilirubin,Urine Negative (Negative); Color,Urine YELLOW (Yellow); Glucose,Urine (UA) Negative (Negative); Ketones,Urine Negative (Negative); Leukocyte Esterase,Urine Negative (Negative); PH,Urine 6.0 (5.0-8.5); Protein,Urine Negative (Negative); Urobilinogen,Urine 0.2 EU/dl (0.2)
[2024-11-17 17:51] LABS: Specific Gravity, Urine 1.005 (1.005-1.030)
[2024-11-17 18:18] LABS: Bacteria,Urine 2+ /lpf
[2024-11-17 18:28] VITALS: BMI 29.5
== END 2024-11-17 18:33 | disposition home or self-care (01) ==
LOC: OBOUT 17:20 → OB 17:20
PROVIDERS: PCP Physician Assistant; Visit Provider Obstetrics & Gynecology
DX: Z34.83 Encounter for supervision of other normal pregnancy, third trimester (principal); Z3A.37 37 weeks gestation of pregnancy
CPT/HCPCS: 59025; 81001; 87086; 87088; 99212; G0463

== ENCOUNTER 2024-12-04 16:47 | Inpatient (IN) | payer BC, SELFPAY ==
[2024-12-04 16:50] VITALS: BMI 29.7
[2024-12-04 17:30] LABS: Hematocrit 32.1 % (37.0-47.0); Hemoglobin 10.6 g/dL (12.2-16.2); Immature Granulocytes % 0.3 %; Mean Corpuscular HGB Conc 33.0 g/dL (31.8-35.4); Mean Corpuscular Hemoglobin 29.9 pg (27.0-31.2); Mean Corpuscular Volume 90.4 fl (81-99); Nucleated Red Blood Cells % 0 %; Platelet Count 213 K/mm3 (142-424); Red Blood Count 3.55 M/mm3 (4.20-5.40); Red Cell Distribution Width-SD 38.8 fL; White Blood Count 8.8 K/mm3 (4.8-10.8)
[2024-12-04 17:47] LABS: Alanine Aminotransferase 33 U/L (12-78); Albumin Level 3.2 g/dl (3.5-5.0); Albumin/Globulin Ratio 0.7 (1.1-1.8); Alkaline Phosphatase 154 U/L (38-126); Anion Gap 9.6 mEq/L (5-15); Aspartate Amino Transferase 38 U/L (14-36); Bilirubin,Total 0.5 mg/dl (0.2-1.3); Blood Urea Nitrogen 10 mg/dl (7-17); Calcium 8.8 mg/dl (8.4-10.2); Carbon Dioxide 22 mmol/L (22.0-30.0); Chloride 101 mmol/L (98-107); Creatinine Clearance Estimated 158 mL/min (50-200); Creatinine,Serum 0.70 mg/dl (0.52-1.04); Estimated Glomerular Filt Rate 100 ml/min (>60); GFR (African American) 121 ML/MIN (>60); Globulin 4.4 g/dL (1.3-3.2); Glucose 102 mg/dl (74-100); Potassium 3.6 mmoL/L (3.5-5.1); Sodium 129 mmol/L (136-145); Total Protein,Serum 7.6 g/dl (6.3-8.2)
[2024-12-04 18:07] VITALS: BP 118/79; PULSE 76; RESP 17; TEMP 36.9; O2SAT 98; BMI 29.7
[2024-12-04 18:19] LABS: Microscopic, Urine URINE MICROSCOPIC (MICROSCOPIC)
[2024-12-04 18:21] LABS: Bilirubin,Urine Negative (Negative); Color,Urine YELLOW (Yellow); Glucose,Urine (UA) Negative (Negative); Ketones,Urine 1+ (Negative); Leukocyte Esterase,Urine TRACE (Negative); PH,Urine 5.5 (5.0-8.5); Protein,Urine Negative (Negative); Specific Gravity, Urine <= 1.005 (1.005-1.030); Urobilinogen,Urine 0.2 EU/dl (0.2)
[2024-12-04 18:40] LABS: RBC,Urine Occasional #/hpf (0-3); Squamous Epithelial Cell,Urine Occasional #/hpf (0-5)
[2024-12-04 19:09] VITALS: BP 134/78; PULSE 62; RESP 16; TEMP 36.8; O2SAT 99
[2024-12-04] MEDS: LACTATED RINGERS 1000ML 1,000 ML 999 ML IV (21:38)
[2024-12-04] MEDS: ONDANSETRON 4MG/2ML VIAL 4 MG IV (21:46)
[2024-12-04] MEDS: TERBUTALINE SULFATE 1MG/ML VIAL 0.25 MG SUBCUT (21:46)
--- NOTE | 2024-12-04 22:32 | P.PNANES_ITS ---
[facility] Disclaimer: The information contained in this section may have been updated after the patient was seen, as this information can be updated by other users. Medical History Gestational diabetes mellitus diet controlled SGA (small for gestational age), , affecting care of mother, antepartum Rh negative state in antepartum period Surgical History Hx of appendectomy Family History Other No significant family history Social History Smoking Status: Never smoker alcohol intake: never substance use type: denies use current occupational status: employed Travel in the last 8 weeks?: None Have you lived/traveled outside US in past 30 days?: No Contact w/someone who lives/traveled outside US past 30 days?: No Exposure to someone with infectious disease in past 14 days?: No Do you have a fever (greater than 100.4 F or 38 C)?: No Have you tested positive for COVID-19?: No Exposed to someone with COVID-19 in past 14 days?: No Do you have a sore throat?: No Do you have a cough?: No Do you have any weakness?: No Do you have any diarrhea?: No Are you experiencing any unusual bleeding?: No Do you have any muscle aches/pain?: No Do you have any abdominal pain?: No Are you experiencing loss of taste or smell?: No [facility] Anesthesia Checklist Patient Identification Patient Identification: Arm Band Structural Data Admitted From: Inpatient Planned Operative Procedure/s: Labor Epidural Consent for Planned Operative Procedure(s) Verified: Yes Verified Documents: Surgical Consent and History and Physical Additional verifications Anesthesia Reactions: No Neurological Assessment Level of Consciousness: Awake, Alert and Appropriate Anesthesia Plan Anesthesia Risk discussed: Yes Anesthesia Plan: Verified ASA Class: II Anesthesia Type: Epidural
[2024-12-05 01:00] LABS: POC Glucose,Bedside 146 gm/dL (70-110)
--- NOTE | 2024-12-05 03:14 | EXP.HP ---
History of Present Illness *Admission Date: 12/04/24 *Reason for visit:: Induction *History of present illness: Ro Portillo is a very pleasant 29-year-old at 39 weeks and 6 days gestation who presented to labor and delivery for induction of labor. Her has been complicated by GDM A1. On presentation patient endorsed good movement and denies any leakage of fluid or vaginal bleeding. A-, antibody pending, rubella immune, hepatitis B negative, hepatitis C negative, RPR negative, HIV negative 1 hour GTT 143 3-hour GTT: 70/190/22/159 GBS negative PFSH [facility] Disclaimer: The information contained in this section may have been updated after the patient was seen, as this information can be updated by other users. Medical History Gestational diabetes mellitus diet controlled SGA (small for gestational age), , affecting care of mother, antepartum Rh negative state in antepartum period Surgical History Hx of appendectomy Family History Other No significant family history Social History Smoking Status: Never smoker alcohol intake: never substance use type: denies use current occupational status: employed Travel in the last 8 weeks?: None Have you lived/traveled outside US in past 30 days?: No Contact w/someone who lives/traveled outside US past 30 days?: No Exposure to someone with infectious disease in past 14 days?: No Do you have a fever (greater than 100.4 F or 38 C)?: No Have you tested positive for COVID-19?: No Exposed to someone with COVID-19 in past 14 days?: No Do you have a sore throat?: No Do you have a cough?: No Do you have any weakness?: No Do you have any diarrhea?: No Are you experiencing any unusual bleeding?: No Do you have any muscle aches/pain?: No Do you have any abdominal pain?: No Are you experiencing loss of taste or smell?: No Other Medical History Have you received the Flu Vaccine for this season: No Have you received the Pneumonia Vaccine: No Review of Systems Review of Systems Review of systems (narrative): Review of Systems Constitutional: Denies fever, chills, and sweats Eyes: Denies vision change/ pain Respiratory: Denies cough and shortness of breath Cardiovascular: Denies chest pain and lightheadedness Gastrointestinal: Admits abdominal pain with contractions. Denies nausea, vomiting. Genitourinary: Denies dysuria and incontinence Musculoskeletal: Denies shoulder pain and back pain Neurological: Denies change in speech or headaches Meds Home Medications and Allergies Home Medications ?Medication ?Instructions ?Recorded ?Confirmed ?Type vits no.126-ferrous fum 1 tab PO DAILY 05/13/24 12/04/24 History 28 mg iron-folic acid 800 mcg tablet (Classic ) lancing device with lancets kit #1 ea 09/24/24 12/04/24 Rx (Accu-Chek Softclix Lancing Device+Lancets kit) blood-glucose meter (Accu-Chek #1 ea 10/15/24 12/04/24 History Guide Me Glucose Meter) amoxicillin 500 mg capsule 500 mg PO BID 7 days #14 caps 12/02/24 12/04/24 Rx blood sugar diagnostic (Accu-Chek #100 strips 12/02/24 12/04/24 Rx Guide test strips) lancets (Accu-Chek Softclix #100 ea 12/02/24 12/04/24 Rx Lancets) New Prescriptions to Start Prescriptions: Allergies Allergy/AdvReac Type Severity Reaction Status Date / Time No Known Allergies Allergy Verified 12/02/24 14:51 Exam Data for Last 24 hours Vital signs and Labs for Last 24 Hours: Temp Pulse Resp BP Pulse Ox O2 Del Method 98.2 F 62 16 134/78 99 Room Air 12/04/24 19:09 12/04/24 19:09 12/04/24 19:09 12/04/24 19:09 12/04/24 19:09 12/04/24 19:09 Laboratory Results - last 24 hr 12/04/24 16:57: Urine Color Yellow, Urine Appearance Clear, Urine pH 5.5, Ur Specific Hooks <= 1.005, Urine Protein Negative, Urine Glucose (UA) Negative, Urine Ketones 1+, Urine Blood Trace-i, Urine Nitrate Negative, Urine Bilirubin Negative, Urine Urobilinogen 0.2, Ur Leukocyte Esterase Trace, Urine RBC Occasional, Urine WBC None, Ur Squamous Epith Cells Occasional, Urine Bacteria None 12/04/24 17:11: WBC 8.8, RBC 3.55 L, Hgb 10.6 L, Hct 32.1 L, MCV 90.4, MCH 29.9, MCHC 33.0, RDW 11.9, Plt Count 213, MPV 11.9 H, Neut % (Auto) 63.1, Lymph % (Auto) 29.1, [place] % (Auto) 6.4, Eos % (Auto) 0.6, Baso % (Auto) 0.5, Neut # (Auto) 5.5, Lymph # (Auto) 2.6, [place] # (Auto) 0.6, Eos # (Auto) 0.1, Baso # (Auto) 0.0, Sodium 129 L, Potassium 3.6, Chloride 101, Carbon Dioxide 22, Anion Gap 9.6, BUN 10, Creatinine 0.70, Estimated Creat Clear 158, Estimated GFR 100, Est GFR ( Amer) 121, Glucose 102 H, Calcium 8.8, Total Bilirubin 0.5, AST 38 H, ALT 33, Alkaline Phosphatase 154 H, Total Protein 7.6, Albumin 3.2 L, Globulin 4.4 H, Albumin/Globulin Ratio 0.7 L, Antibody Screen Negative 12/05/24 00:48: POC Glucose 146 H I & O for Last 24 hours: Intake & Output 12/02/24 12/03/24 12/04/24 12/05/24 23:59 23:59 23:59 23:59 Intake Total 1000 / 1000 Output Total 200 / 200 Balance 1000 / 1000 -200 / -200 Weight 184 lb Narrative: General: patient is alert oriented in no acute distress and responds appropriately to questions. HEENT: NCAT, EOMI, moist mucous membranes, neck supple with full ROM Cardiovascular: RRR +S1/S2, no murmurs or rubs Pulmonary: Clear to auscultation bilaterally, nonlabored breathing, symmetric chest rise Abdominal: Gravid abdomen appropriate for gestation. No guarding, rebound, or tenderness noted. Extremities: trace edema, no tenderness or cyanosis noted Skin: Normal turgor, intact, warm. Negative for erythema, pallor, petechia, or lesions Neurologic: Negative for sensory or motor deficit Psychiatric: Normal affect, normal thought process, good judgment and insight, no depression or anxious mood appreciated. *Routine HEENT Exam Head: Present normocephalic and atraumatic Eye: Present EOMI, PERRL and normal accommodation; Absent conjunctival icterus, scleral injection, nystagmus or exophthalmos ENT: Present mucous membranes moist *Routine Respiratory Exam Respiratory: Present CTA bilaterally, normal respiratory effort, able to speak in complete sentences and symmetric chest movement; Absent accessory muscle use, decreased breath sounds, rales, respiratory distress, wheezes, distant breath sounds or diminished air movement *Routine Cardiovascular Exam Cardiovascular: Present RRR, Normal S1 and Normal S2; Absent murmur or gallop *Routine Abdominal Exam Abdominal: Present soft and normoactive bowel sounds; Absent tenderness, distended, rebound or guarding *Routine Rectal Exam Rectal:: deferred *Routine Genitalia Exam Genitalia:: normal female Assessment and Plan *Assessment and plan (1) Gestational diabetes mellitus: Problem Comment: diet controlled Status: Acute Qualifiers: Gestational diabetes mellitus control: diet-controlled Trimester: third trimester Qualified Code(s): O24.410 - Gestational diabetes mellitus in , diet controlled Category: Medical Code(s): O24.419 - Gestational diabetes mellitus in , unspecified control (2) : Status: Acute Qualifiers: Weeks of gestation: 32 weeks Qualified Code(s): Z3A.32 - 32 weeks gestation of Category: Medical Code(s): Z34.90 - Encounter for supervision of normal , unspecified, unspecified trimester (3) Rh negative state in antepartum period: Status: Acute Category: Medical Code(s): O26.899 - Other specified related conditions, unspecified trimester; Z67.91 - Unspecified blood type, Rh negative (4) Encounter for induction of labor: Status: Acute Category: Medical Code(s): Z34.90 - Encounter for supervision of normal , unspecified, unspecified trimester Plan - Monitor vitals - Admit to L&D for induction of labor - Plan for induction with 25mcg of vaginal cytotec [id number] per protocol - External FHR and TOCO monitor - GBS neg/ Blood type: A- - Hemoglobin: 10.6, Plt: 213 - Plan for epidural anesthesia - Anticipate vaginal delivery of female infant: Bridget Conte
[2024-12-05] MEDS: OXYTOCIN/RINGERS LACTATE 30 UNITS/500 ML BAG 40 UNITS IV (03:39)
[2024-12-05] MEDS: BENZOCAINE-MENTHOL SPRAY 56GM CAN TP (04:05)
[2024-12-05] MEDS: WITCH HAZEL 40 PADS/BOX 1 EACH TP (04:05)
--- NOTE | 2024-12-05 04:08 | EXP.DN ---
Delivery Note Delivery Date:: 12/05/24 Delivery Time:: 03:37 Anesthesia Type: Epidural Was labor medically induced?: Yes Induction method: per misoprostol protocol Gestational age (weeks): 39 Infant delivered prior to 39 weeks?: No Gender: Female at 1 minute: 8 at 5 minutes: 9 Delivery Procedure:: Preoperative diagnosis: 1. at 39w6d completed this weeks gestation, vertex 2. Rh positive 3. GBS negative 4. GDM A1 Postoperative diagnosis: Same EBL: 200 mL Specimen: 1. Cord blood 2. Placenta Findings: 1. Liveborn viable female infant: Bridget Conte. Apgars 8/9 at 1 and 5 minutes respectively. Weight pending at time of dictation 2. 2nd degree midline perineal laceration Complications: None Procedure: Nonoperative spontaneous vaginal delivery Ro Sifuentes is a 29-year-old G1, P0 who is brought into labor and delivery for induction of labor. She received 1 dose of Cytotec and progressed to complete. Patient had spontaneous rupture of membranes revealing clear fluid. She received an epidural for anesthesia. She progressed to complete. During pushing the patient had decelerations with contractions. They recovered to baseline with good variability in between contractions. The was noted to be in LI position. With effective maternal pushing there was a nonoperative spontaneous vaginal delivery at 1044. [id number]. The anterior right shoulder delivered, followed by the posterior shoulder without dystocia. Thick meconium was noted. The body and lower extremities delivered without difficulty. The was crying immediately following delivery. The infant was placed on the maternal abdomen and greater than one minute was appreciated for delayed cord clamping. The umbilical cord was doubly clamped and cut. Cord gases were collected and sent for routine testing. Cord blood was collected and sent for routine testing. The placenta delivered with cord traction and suprapubic contertraction. Pitocin was started. The uterus was firm and bleeding was minimal. The perineum, vaginal chao, cervix, and paraurethral area were inspected thoroughly. There was a second-degree midline perineal laceration. This laceration made a V pattern up the sidewalls of the vaginal chao and labia. The laceration was repaired in the usual fashion using 2-0 Vicryl suture. The laceration was hemostatic. The cervix and vaginal chao were inspected and noted to be hemostatic. This concluded the delivery. The patient was counseled regarding the events of the delivery and repair. The patient tolerated the delivery well. All counts were correct by nursing. Mother and were doing well and bonding upon my leaving the delivery room. Laceration:: vaginal Placental Delivery Description: Spontaneous
[2024-12-05] MEDS: LANOLIN CREAM 40GM TP (05:39)
[2024-12-05] MEDS: IBUPROFEN 400 MG TABLET 800 MG PO ×2 (06:15→16:52)
[2024-12-05] MEDS: ACETAMINOPHEN 500MG TAB 1000 MG PO ×3 (06:15→20:10)
[2024-12-05 11:51] LABS: Hematocrit 28.1 % (37.0-47.0); Immature Granulocytes % 0.2 %; Mean Corpuscular HGB Conc 33.5 g/dL (31.8-35.4); Mean Corpuscular Hemoglobin 30.2 pg (27.0-31.2); Mean Corpuscular Volume 90.4 fl (81-99); Nucleated Red Blood Cells % 0 %; Platelet Count 181 K/mm3 (142-424); Red Blood Count 3.11 M/mm3 (4.20-5.40); Red Cell Distribution Width-SD 39.3 fL; White Blood Count 10.7 K/mm3 (4.8-10.8)
[2024-12-05 12:05] LABS: Hemoglobin 9.5 g/dL (12.2-16.2)
[2024-12-05 13:39] LABS: RPR W/RFX Titers Nonreactive (Nonreactive)
[2024-12-05] MEDS: PRENATAL MULTIVITAMIN W/IRON 1 EACH PO (16:52)
[2024-12-05] MEDS: SENNA 8.6MG TABLET 8.6 MG PO (16:52)
[2024-12-05] MEDS: RHO(D) IMMUNE GLOBULIN 1,500 UNIT (300MCG) SYRINGE 300 MCG IM (23:34)
[2024-12-06] MEDS: IBUPROFEN 400 MG TABLET 800 MG PO ×3 (01:16→17:43)
[2024-12-06] MEDS: WITCH HAZEL 40 PADS/BOX 1 EACH TP (01:30)
[2024-12-06 08:50] VITALS: BP 133/88; PULSE 94; RESP 18; TEMP 37.1; O2SAT 98
[2024-12-06] MEDS: SENNA 8.6MG TABLET 8.6 MG PO (08:51)
[2024-12-06] MEDS: ACETAMINOPHEN 500MG TAB 1000 MG PO ×2 (08:51→16:05)
--- NOTE | 2024-12-06 10:10 | EXP.ACUTE.PN ---
Subjective *Date: 12/06/24 *Time: 10:10 Interval history: PPD # 1 s/p Feeling well. Pain controlled. Breast feeding. Lochia is appropriate. Voiding without difficulty and passing flatus. Tolerating regular diet. Denies fever/chills, chest pain and shortness of breath. No headaches, vision changes, lightheadedness/dizziness. Admits to mild lower extremity swelling that is much better than prior to delivery. No calf pain. Ambulating well ad ruperto. Medical Exam Vital signs and Labs for Last 24 Hours: Vital Signs Temp Pulse Resp BP Pulse Ox O2 Del Method 12/06/24 08:50 98.8 F 94 H 18 133/88 98 Room Air Intake and Output 12/05/24 12/06/24 12/06/24 23:59 07:59 15:59 Intake Total 400 / 400 Balance 400 / 200 Intake: Intake, Total IV Amount 400 / 400 Oxytocin/Ringers Lactate 30 400 / 400 units In 500 ml @ 40 mls/hr IV .[id number] [facility] Rx#:[id number] Laboratory Results - last 24 hr 12/04/24 17:11: RPR w/Rflx to Titer Nonreactive 12/05/24 11:45: WBC 10.7, RBC 3.11 L, Hgb 9.5 L D, Hct 28.1 L, MCV 90.4, MCH 30.2, MCHC 33.5, RDW 12.0, Plt Count 181, MPV 11.7 H, Neut % (Auto) 75.4, Lymph % (Auto) 15.7, [place] % (Auto) 7.8, Eos % (Auto) 0.5, Baso % (Auto) 0.4, Neut # (Auto) 8.1 H, Lymph # (Auto) 1.7, [place] # (Auto) 0.8, Eos # (Auto) 0.1, Baso # (Auto) 0.0, Screen Negative, Baby's Rh Status Positive I & O for Labs for Last 24 Hours: Intake & Output 12/03/24 12/04/24 12/05/24 12/06/24 23:59 23:59 23:59 23:59 Intake Total 1000 / 1000 400 / 400 Output Total 200 / 200 Balance 1000 / 1000 200 / 200 Weight 184 lb Head: Present atraumatic and normocephalic ENT: Present normal exam Neck: Present normal inspection and full ROM Respiratory: Present CTA bilaterally and normal respiratory effort Cardiac: Present Reg Rate and Rhythm GI: Present soft; Absent distention or tenderness Comments:: Uterine fundus firm and below umbilicus Rectal (female): Present deferred (female): Present deferred Extremities: Present full ROM and edema (+1 bilateral lower extremity edema); Absent calf tenderness Neuro: Present alert, awake and moves all extremities Assessment and Plan *Assessment and plan (1) Status post vaginal delivery: Status: Acute Category: Surgical (2) Gestational diabetes mellitus: Problem Comment: diet controlled Status: Acute Qualifiers: Gestational diabetes mellitus control: diet-controlled Trimester: third trimester Qualified Code(s): O24.410 - Gestational diabetes mellitus in , diet controlled Category: Medical Code(s): O24.419 - Gestational diabetes mellitus in , unspecified control (3) Rh negative state in antepartum period: Status: Acute Category: Medical Code(s): O26.899 - Other specified related conditions, unspecified trimester; Z67.91 - Unspecified blood type, Rh negative (4) Acute blood loss anemia: Status: Acute Category: Medical Code(s): D62 - Acute posthemorrhagic anemia Plan Continue routine care AM Hgb 9.5 (10.6 on admission) Encouraged increased ambulation Plan d/c home tomorrow, PPD # 2
[2024-12-06] MEDS: PRENATAL MULTIVITAMIN W/IRON 1 EACH PO (17:43)
[2024-12-07] MEDS: IBUPROFEN 400 MG TABLET 800 MG PO ×2 (00:28→08:07)
[2024-12-07] MEDS: LANOLIN CREAM 40GM TP (00:28)
[2024-12-07] MEDS: ACETAMINOPHEN 500MG TAB 1000 MG PO ×2 (00:28→08:07)
[2024-12-07] MEDS: BENZOCAINE-MENTHOL SPRAY 56GM CAN TP (00:28)
[2024-12-07] MEDS: WITCH HAZEL 40 PADS/BOX 1 EACH TP (00:29)
[2024-12-07] MEDS: SENNA 8.6MG TABLET 8.6 MG PO (00:31)
--- NOTE | 2024-12-07 11:43 | P.DS_ITS ---
General Admission date:: 12/04/24 Discharge date: 12/07/24 HPI HPI HPI: PPD # 2 s/p Feeling well. Pain controlled. Breast feeding. Lochia is light. Voiding without difficulty and passing flatus. Tolerating regular diet. Denies fever/chills, chest pain and shortness of breath. No headaches, vision changes, lightheadedness/dizziness. Admits to mild lower extremity swelling. No calf pain. Ambulating well ad ruperto. Hospital Course Hospital Course Hospital Course: Ro Portillo is a very pleasant 29-year-old at 39 weeks and 6 days gestation who presented to labor and delivery for induction of labor. Her has been complicated by GDM A1. On presentation patient endorsed good movement and denies any leakage of fluid or vaginal bleeding. She received Cytotec 25 mcg vaginally, had spontaneous rupture of membranes and progressed to complete without any further intervention. GBS negative. She had a normal spontaneous vaginal delivery on 12/05/24 at 0337. She delivered a live female baby, Bridget Conte, weighing 7 lb 9 oz. Apgars 8/9 at 1 and 5 minutes respectively. EBL 200 mL. She did well . Pain controlled. Breast feeding. Light lochia. Voiding without difficulty and passing flatus. Tolerating regular diet. Denies fever/chills, chest pain and shortness of breath. No headaches, dizziness/lightheadedness or vision changes. Vital signs stable, afebrile. Heart regular rate and rhythm. Lungs clear to auscultation. Abdomen soft, nontender. She had +1 bilateral lower extremity swelling. Ambulating well ad ruperto. Normal hospital course. She was discharged to home on PPD # 2 with instructions to follow-up in the office in 2 weeks or sooner if needed. Exam Data for Last 24 hours Vital signs and Labs for Last 24 Hours: Temp Pulse Resp BP Pulse Ox O2 Del Method 98.8 F 94 H 18 133/88 98 Room Air 12/06/24 08:50 12/06/24 08:50 12/06/24 08:50 12/06/24 08:50 12/06/24 08:50 12/06/24 08:50 I & O for Last 24 hours: Intake & Output 12/04/24 12/05/24 12/06/24 12/07/24 23:59 23:59 23:59 22:59 Intake Total 1000 / 1000 400 / 400 Output Total 200 / 200 Balance 1000 / 1000 200 / 200 Weight 184 lb Constitutional Constitutional: no acute distress and cooperative *Routine HEENT Exam Head: Present normocephalic and atraumatic Eye: Absent conjunctivae pink ENT: Present mucous membranes moist *Routine Neck Exam Neck: Present full ROM *Routine Respiratory Exam Respiratory: Present CTA bilaterally and normal respiratory effort *Routine Cardiovascular Exam Cardiovascular: Present RRR *Routine Abdominal Exam Abdominal: Present soft; Absent tenderness or distended *Routine Rectal Exam Patient deferred: visual exam *Routine Exam Patient deferred: external exam *Routine Extremities Exam Extremities: Present edema (1 bilateral lower extremity edema) and full ROM; Absent calf tenderness *Routine Neurological Exam Neurological: Present alert, moving all extremities and normal speech Routine Psychiatric Exam Psychiatric: Present normal affect and cooperative DS: Diagnosis Discharge Diagnosis (1) Status post vaginal delivery: Status: Acute (2) Gestational diabetes mellitus: Status: Acute Code(s): O24.419 - Gestational diabetes mellitus in , unspecified control Qualifiers: Gestational diabetes mellitus control: diet-controlled Trimester: third trimester Qualified Code(s): O24.410 - Gestational diabetes mellitus in , diet controlled Problem details: diet controlled (3) Rh negative state in antepartum period: Status: Acute Code(s): O26.899 - Other specified related conditions, unspecified trimester; Z67.91 - Unspecified blood type, Rh negative (4) Acute blood loss anemia: Status: Acute Code(s): D62 - Acute posthemorrhagic anemia Meds Home Medications and Allergies Home Medications ?Medication ?Instructions ?Recorded ?Confirmed ?Type vits no.126-ferrous fum 1 tab PO DAILY 12/04/24 History 28 mg iron-folic acid 800 mcg tablet (Classic ) amoxicillin 500 mg capsule 500 mg PO BID 7 days #14 ca ps 12/02/24 12/04/24 Rx ibuprofen 800 mg tablet 800 mg PO Q8H PRN pain #20 t abs 12/06/24 Rx New Prescriptions to Start Prescriptions: Geovanna Ennis Allergies Allergy/AdvReac Type Severity Reaction Status Date / Time No Known Allergies Allergy Verified 12/02/24 14:51 Discharge Plan Disposition Patient Disposition: Home, Self-Care Condition: Good Discharge Order Discharge Orders: Discharge Order (Routine); Ordered 12/07/24 Ordered By: Geovanna Valdez Follow up Plan Follow up with: Geovanna Valdez DO [Staff Physician, [facility]] - 2 weeks Prescriptions/Medication Reconciliation: New ibuprofen 800 mg tablet 800 mg PO Q8H PRN (Reason: pain) Qty: 20 0RF Continued Classic 28 mg iron- 800 mcg tablet 1 tab PO DAILY amoxicillin 500 mg capsule 500 mg PO BID 7 Days Qty: 14 0RF Discontinued (DME) blood-glucose meter [Accu-Chek Guide Me Glucose Mtr] [facility] [place] See Rx Instructions .ROUTE .MEDSUPPLY Qty: 1 Patient Comments: USE DIRECTED TO test blood sugar FOUR TIMES DAILY Rx Instructions: As directed (DME) lancing device with lancets [Accu-Chek Soft Dev Lancets] Kit See Rx Instructions .ROUTE .MEDSUPPLY Qty: 1 0RF Rx Instructions: As directed 100 lancets 100 strips 100 alcohol swabs (DME) Accu-Chek Guide test strips Strip See Rx Instructions .ROUTE .COMPLEX Qty: 100 2RF Dose Instruction: USE TO test blood sugar FOUR TIMES DAILY Rx Instructions: USE TO test blood sugar FOUR TIMES DAILY (DME) lancets [Accu-Chek Softclix Lancets] [facility] See Rx Instructions .ROUTE .COMPLEX Qty: 100 2RF Dose Instruction: USE DIRECTED TO test blood sugar FOUR TIMES DAILY Rx Instructions: USE DIRECTED TO test blood sugar FOUR TIMES DAILY Problem Reconciliation Problems Reviewed?: Yes Patient Discharge Instructions ACTIVITY: Limited activity DIET: continue same diet and regular diet Additional Instructions: Congratulations!! Discharge: 1. Take 800 mg Ibuprofen every 8 hours as needed for pain. You can also take 500-1000 mg of Tylenol in between doses, every 6-8 hours. 2. Nothing in the vagina for 6 weeks - no intercourse, douching or tampons. No tub baths/hot tubs or swimming pools 3. Reasons to return to L&D or call On-Call doctor - fever (greater than 100.4) - heavy vaginal bleeding (soaking through 1 pad in less than 2 hours) - vaginal discharge (malodorous and/or purulent) - severe headaches not resolved by medication or rest 4. depression/blues - Normal to feel anxious/overwhelmed for first 2 weeks - Talk to your doctor if: severe anxiety, trouble bonding with baby, withdrawing from other family members, thoughts of harming yourself or others Geovanna Valdez DO [facility] [phone] Patient Instructions: Depression, Hemorrhage, DI for Labor and Delivery, Vaginal , DI for Pre-eclampsia, Catheter-Associated Urinary Tract Infection, [facility] Post Discharge Instructions Print Language: Brazilian Providers Primary Care Provider: Mouna Awad Admit Provider: Celsa Ordaz Attending Provider: Celsa rOdaz
== END 2024-12-07 13:43 | disposition home or self-care (01) | DRG 806 ==
PROVIDERS: Admitting Provider Obstetrics & Gynecology; PCP Physician Assistant; Visit Provider Obstetrics & Gynecology
DX: O24.420 Gestational diabetes mellitus in childbirth, diet controlled (principal); D62 Acute posthemorrhagic anemia; Z37.0 Single live birth; Z3A.39 39 weeks gestation of pregnancy; O90.81 Anemia of the puerperium; O70.1 Second degree perineal laceration during delivery; O77.0 Labor and delivery complicated by meconium in amniotic fluid; O26.893 Other specified pregnancy related conditions, third trimester; Z67.11 Type A blood, Rh negative; Z23 Encounter for immunization; Z29.13 Encounter for prophylactic Rho(D) immune globulin
CPT/HCPCS: 51702; 59025; 80053; 81001; 82800; 82962; 85025; 85461; 86592; 86850; 94761; J2003; J2405; J2790; J2795; J3010; J3105; J7120